=== PATIENT | female | born 1955 | race Caucasian/White ===

== ENCOUNTER 2022-02-01 14:42 | Outpatient (CLI) | payer OTHER, MEDICARE, SELFPAY ==
--- NOTE | 2022-02-01 15:20 | CRLHL7_ITS ---
For Patients: As a result of the Century Cures Act, medical imaging exams and procedure reports are released immediately into your electronic medical record. You may view this report before your referring provider. If you have questions, please contact your health care provider. BILATERAL SCREENING MAMMOGRAM WITH COMPUTER-AIDED DETECTION AND TOMOSYNTHESIS TECHNIQUE: CC and MLO views were obtained. These mammographic images have been obtained using full-field digital technique. These mammographic images were interpreted with the benefit of computer-aided detection. Breast Tomosynthesis was used in this interpretation. COMPARISON FILM: Previous 10+ years ago, re-establish baseline. FINDINGS: The breasts are heterogeneously dense, which may obscure small masses IMPRESSION: There is no radiographic evidence for malignancy. ASSESSMENT: BI-RADS Category 1: Negative RECOMMENDATION: Routine screening mammogram in 1 year. A lay language report of this examination will be provided to the patient. Tushar Garcia M.D. Diagnostic Radiologist [email or web address] CLAY/[email or web address] [email or web address]/Dictated by: Tushar Garcia MD @ 02/02/2022 9:32:00 AM (Electronically Signed)
== END 2022-02-01 14:43 | disposition home or self-care (01) ==
LOC: MAMMO 14:48
PROVIDERS: Visit Provider Physician Assistant Medical
DX: Z12.31 Encounter for screening mammogram for malignant neoplasm of breast (principal); R92.2 Inconclusive mammogram
CPT/HCPCS: 77063; 77067

== ENCOUNTER 2022-08-18 15:09 | Outpatient (CLI) | payer OTHER, SELFPAY ==
[2022-08-18 13:41] LABS: Albumin* 4.3 g/dL (3.3-5.0); Chloride* 104 mmol/L (96-114); Potassium* 4.4 mmol/L (3.6-5.1); Sodium* 141 mmol/L (135-149)
[2022-08-18 13:43] LABS: Bilirubin Total* 0.5 mg/dL (0.1-1.5); Carbon Dioxide* 32 mmol/L (20-32); Cholesterol* 275 mg/dL (90-199); Creatinine* 0.8 mg/dL (0.5-1.5); Estimated Glomerular Filt Rate 80 ml/min; Total Protein* 7.1 g/dL (6.0-8.3)
[2022-08-18 13:44] LABS: Alanine Aminotransferase* 43 U/L (4-35); Alkaline Phosphatase* 67 U/L (40-150); Aspartate Amino Transferase* 40 U/L (12-35); Blood Urea Nitrogen* 14 mg/dL (7-30); Calcium* 9.4 mg/dL (8.4-10.6); Glucose* 107 mg/dL (60-115); HDL Cholesterol* 68 mg/dL (>=50); LDL Cholesterol Calculated 165 mg/dL (<100); Triglycerides* 211 mg/dL (40-149)
[2022-08-18 13:47] LABS: Vitamin D 25 Hydroxy* 39 ng/mL (30-80)
== END 2022-08-18 15:10 | disposition home or self-care (01) ==
PROVIDERS: PCP Physician Assistant Medical; Visit Provider Physician Assistant Medical
DX: E78.5 Hyperlipidemia, unspecified (principal); I10 Essential (primary) hypertension; R79.89 Other specified abnormal findings of blood chemistry; E04.1 Nontoxic single thyroid nodule
CPT/HCPCS: 80053; 80061; 82306; 84443

== ENCOUNTER 2023-04-24 08:42 | Outpatient (CLI) | payer MEDICARE, SELFPAY ==
--- NOTE | 2023-04-24 09:00 | CRLHL7_ITS ---
For Patients: As a result of the Cures Act, medical imaging exams and procedure reports are released immediately into your electronic medical record. You may view this report before your referring provider. If you have questions, please contact your health care provider. Indication: Unspecified abdominal hernia without obstruction, lump right mid abdominal area Technique: Noncontrast CT abdomen and pelvis Please note that all CT scans at this facility use dose modulation, iterative reconstruction, and/or weight-based dosing when appropriate to reduce radiation dose to as low as reasonably achievable. Comparison: 06/21/2010, 11/16/2007 Findings: Lung bases are clear. No pleural effusion. No free intraperitoneal air. Stable intrahepatic hemangioma within the right hepatic lobe. Calcified stones in the gallbladder lumen have increased since the prior study. No gallbladder wall thickening. Stable left adrenal adenoma. Right adrenal gland normal. Mild fatty atrophy of the pancreas. Stable calcification within the left kidney. Right kidney normal. Stable subcentimeter retroperitoneal lymph nodes. No pelvic soft tissue mass. The bladder is unremarkable. Normal ureters. Sigmoid diverticulosis. No diverticulitis. Postop changes to the right side of the abdominal wall. No abdominal wall hernia. No fluid collection or abscess. Mild vascular calcifications. Degenerative disc disease lumbar spine. No fracture. Impression: Postoperative changes to the lateral aspect of the abdominal wall. No abdominal wall hernia, seroma or abscess. No mass. Stable subcentimeter retroperitoneal lymph nodes. Cholelithiasis. Stable benign left adrenal adenoma and intrahepatic hemangioma. Sigmoid diverticulosis without diverticulitis. Please note that all CT scans at this facility use dose modulation, iterative reconstruction, and/or weight-based dosing when appropriate to reduce radiation dose to as low as reasonably achievable. Dictated by Tushar Garcia MD @ 04/24/2023 9:51:17 AM (Electronically Signed)
== END 2023-04-24 08:43 | disposition home or self-care (01) ==
PROVIDERS: PCP Physician Assistant Medical; Visit Provider Physician Assistant Medical
DX: K46.9 Unspecified abdominal hernia without obstruction or gangrene (principal); K80.20 Calculus of gallbladder without cholecystitis without obstruction; K57.30 Diverticulosis of large intestine without perforation or abscess without bleeding
CPT/HCPCS: 74176

== ENCOUNTER 2024-03-06 07:50 | Outpatient (CLI) | payer MEDICARE, SELFPAY | END 2024-03-06 07:51 | disposition home or self-care (01) | PROVIDERS: PCP Physician Assistant Medical; Visit Provider Physician Assistant Medical | DX: E78.2 Mixed hyperlipidemia (principal); I10 Essential (primary) hypertension; E55.9 Vitamin D deficiency, unspecified; G62.9 Polyneuropathy, unspecified; R79.89 Other specified abnormal findings of blood chemistry | CPT/HCPCS: 80053; 80061; 82306; 82607; 84443 ==

== ENCOUNTER 2024-07-24 14:12 | Outpatient (CLI) | payer MEDICARE, SELFPAY ==
--- NOTE | 2024-07-24 15:20 | CRLHL7_ITS ---
For Patients: As a result of the Century Cures Act, medical imaging exams and procedure reports are released immediately into your electronic medical record. You may view this report before your referring provider. If you have questions, please contact your health care provider. BILATERAL SCREENING MAMMOGRAM WITH COMPUTER-AIDED DETECTION AND TOMOSYNTHESIS TECHNIQUE: CC and MLO views were obtained. These mammographic images have been obtained using full-field digital technique. These mammographic images were interpreted with the benefit of computer-aided detection. Breast Tomosynthesis was used in this interpretation. COMPARISON FILM: 02/01/22. FINDINGS: The breasts are heterogeneously dense, which may obscure small masses. IMPRESSION: There is no radiographic evidence for malignancy. ASSESSMENT: BI-RADS Category 2: Benign RECOMMENDATION: Routine screening mammogram in 1 year. A lay language report of this examination will be provided to the patient. Servando Horan M.D. Diagnostic/Nuclear Medicine Radiologist [email or web address]/[email or web address] SP/Dictated by: Servando Horan MD @ 07/25/2024 11:20:00 AM (Electronically Signed)
== END 2024-07-24 14:13 | disposition home or self-care (01) ==
LOC: RAD 14:13
PROVIDERS: PCP Physician Assistant Medical; Visit Provider Physician Assistant Medical
DX: Z12.31 Encounter for screening mammogram for malignant neoplasm of breast (principal); R92.333 Mammographic heterogeneous density, bilateral breasts; M85.80 Other specified disorders of bone density and structure, unspecified site; M85.88 Other specified disorders of bone density and structure, other site
CPT/HCPCS: 77063; 77067; 77080

== ENCOUNTER 2024-12-02 13:18 | Outpatient (CLI) | payer MEDICARE, SELFPAY | END 2024-12-02 13:19 | disposition home or self-care (01) | LOC: NFLDREF 12-04 02:38 | PROVIDERS: PCP Physician Assistant Medical; Referring Provider Physician Assistant Medical; Visit Provider Physician Assistant Medical | DX: I10 Essential (primary) hypertension (principal); R00.2 Palpitations | CPT/HCPCS: 84450; 84460 ==

== ENCOUNTER 2025-03-18 08:30 | Outpatient (CLI) | payer MEDICARE, SELFPAY | END 2025-03-18 08:31 | disposition home or self-care (01) | LOC: NFLDREF 03-23 04:21 | PROVIDERS: PCP Physician Assistant Medical; Referring Provider Physician Assistant Medical; Visit Provider Physician Assistant Medical | DX: Z00.00 Encounter for general adult medical examination without abnormal findings (principal); I10 Essential (primary) hypertension; E78.5 Hyperlipidemia, unspecified; M10.9 Gout, unspecified | CPT/HCPCS: 80053; 80061; 84443; 84550 ==

== ENCOUNTER 2025-04-02 13:26 | Outpatient (CLI) | payer MEDICARE, SELFPAY | END 2025-04-02 13:27 | disposition home or self-care (01) | LOC: RAD 13:27 | PROVIDERS: PCP Physician Assistant Medical; Visit Provider Physician Assistant Medical | DX: R00.2 Palpitations (principal) | CPT/HCPCS: 93306 ==

== ENCOUNTER 2025-04-04 14:13 | Outpatient (CLI) | payer MEDICARE, SELFPAY | END 2025-04-04 14:14 | disposition home or self-care (01) | LOC: NFLDREF 04-08 07:32 | PROVIDERS: PCP Physician Assistant Medical; Referring Provider Physician Assistant Medical; Visit Provider Nurse Practitioner Family | DX: N39.0 Urinary tract infection, site not specified (principal); R31.9 Hematuria, unspecified | CPT/HCPCS: 87086 ==

== ENCOUNTER 2025-04-14 14:20 | Outpatient (CLI) | payer MEDICARE, SELFPAY ==
--- NOTE | 2025-04-14 15:00 | CRLHL7_ITS ---
For Patients: As a result of the Century Cures Act, medical imaging exams and procedure reports are released immediately into your electronic medical record. You may view this report before your referring provider. If you have questions, please contact your health care provider. INDICATION: Hematuria. TECHNIQUE: CT abdomen and pelvis urogram without and with 100 cc Omnipaque 350 IV contrast. Contrast images were obtained in the delayed phases. COMPARISON: CT abdomen April 2023 FINDINGS: Kidneys: Bilateral kidneys are normal in size and show symmetric contrast enhancement. Nonobstructing left midpole calculus measures 8 millimeter. No ureteric calculi or hydronephrosis. No filling defect within the opacified portion of urine collecting system, ureters and urinary bladder. No solid enhancing renal mass. Urinary Bladder: The urinary bladder is minimally distended without wall thickening or perivesicular inflammation. Dependent opacified urinary bladder demonstrates no filling defect to suspect mass. Other: Linear atelectasis in the lingula. The liver, spleen, pancreas gallbladder demonstrate no acute findings. Right hepatic hemangioma, unchanged. Cholelithiasis. Small adrenal nodule with Hounsfield unit of less than 10 on noncontrast image measuring 14 mm, likely adenoma. No bowel obstruction or wall thickening. Colonic diverticulosis. Prostate is normal in size. No free intraperitoneal fluid or air. Small fat containing umbilical hernia. Minimal aortic atherosclerosis. No suspicious lymph nodes. Scattered mild degenerative changes of the spine. IMPRESSION: 1. Nonobstructing left midpole nephrolithiasis, unchanged. 2. Cholelithiasis. 3. Unchanged left adrenal adenoma. 4. Colonic diverticulosis without diverticulitis.. Please note that all CT scans at this facility use dose modulation, iterative reconstruction, and/or weight-based dosing when appropriate to reduce radiation dose to as low as reasonably achievable. Dictated by Kit Bryant MD @ 04/15/2025 1:08:02 PM (Electronically Signed)
== END 2025-04-14 14:21 | disposition home or self-care (01) ==
LOC: CT 14:20
PROVIDERS: PCP Physician Assistant Medical; Visit Provider Nurse Practitioner Family
DX: R31.9 Hematuria, unspecified (principal); N20.0 Calculus of kidney; K80.20 Calculus of gallbladder without cholecystitis without obstruction; E27.8 Other specified disorders of adrenal gland; K57.30 Diverticulosis of large intestine without perforation or abscess without bleeding
CPT/HCPCS: 74178; Q9967

== ENCOUNTER 2025-04-22 08:53 | Outpatient (CLI) | payer MEDICARE, SELFPAY ==
--- NOTE | 2025-04-22 10:45 | P.ANES_ITS ---
Anesthesia Charges Start Date/Time Anesthesia Start Date: 04/22/25 Anesthesia Start Time: 10:25 Stop Date/Time Anesthesia Stop Date: 04/22/25 Anesthesia Stop Time: 11:10 Summary Extremes of Age - Over 70 or under 1: MDA Coding CPT Codes CPT Codes: ANESTH ANORECTAL SURGERY - 64105 ([id number]) P3 - PATIENT W/SEVERE SYS DISEASE, QK - PARACHUTE MARKER 2-4 CNCRNT ANES PROC, QX - LOIN TRIMMER SVC W/ MD MED DIRECTION Additional Codes: Summary - Extremes of Age - Over 70 or under 1: MDA ([id number])
--- NOTE | 2025-04-22 10:45 | W.ANESCHARGE ---
Anesthesia Charges Start Date/Time Anesthesia Start Date: 04/22/25 Anesthesia Start Time: 10:25 Stop Date/Time Anesthesia Stop Date: 04/22/25 Anesthesia Stop Time: 11:10 Summary Extremes of Age - Over 70 or under 1: MDA Coding CPT Codes CPT Codes: ANESTH ANORECTAL SURGERY - 67645 ([id number]) P3 - PATIENT W/SEVERE SYS DISEASE, QK - HOT CAR CHARGER 2-4 CNCRNT ANES PROC, QX - RESEARCH GEOLOGIST SVC W/ MD MED DIRECTION Additional Codes: Summary - Extremes of Age - Over 70 or under 1: MDA ([id number])
--- NOTE | 2025-04-22 11:17 | P.ANES_ITS ---
Anesthesia Charges Start Date/Time Anesthesia Start Date: 04/22/25 Anesthesia Start Time: 10:25 Stop Date/Time Anesthesia Stop Date: 04/22/25 Anesthesia Stop Time: 11:10 Summary Extremes of Age - Over 70 or under 1: FAST FOOD ASSISTANT RESTAURANT MANAGER Coding CPT Codes CPT Codes: ANESTH ANORECTAL SURGERY - 10153 ([id number]) P3 - PATIENT W/SEVERE SYS DISEASE, QK - RADIAL DRILL OPERATOR FOR PLASTIC 2-4 CNCRNT ANES PROC Additional Codes: Summary - Extremes of Age - Over 70 or under 1: FAST FOOD ASSISTANT RESTAURANT MANAGER ([id number])
--- NOTE | 2025-04-22 11:17 | W.ANESCHARGE ---
Anesthesia Charges Start Date/Time Anesthesia Start Date: 04/22/25 Anesthesia Start Time: 10:25 Stop Date/Time Anesthesia Stop Date: 04/22/25 Anesthesia Stop Time: 11:10 Summary Extremes of Age - Over 70 or under 1: TWILL CUTTER Coding CPT Codes CPT Codes: ANESTH ANORECTAL SURGERY - 64644 ([id number]) P3 - PATIENT W/SEVERE SYS DISEASE, QK - HOME APPLIANCE WASHING MACHINE MECHANIC 2-4 CNCRNT ANES PROC Additional Codes: Summary - Extremes of Age - Over 70 or under 1: TWILL CUTTER ([id number])
== END 2025-04-22 08:54 | disposition home or self-care (01) ==
LOC: OP CLINIC 08:53
PROVIDERS: Visit Provider Surgery
DX: Z12.11 Encounter for screening for malignant neoplasm of colon (principal); D12.8 Benign neoplasm of rectum; K64.4 Residual hemorrhoidal skin tags; K64.8 Other hemorrhoids
CPT/HCPCS: 00811; 00902; 45385; 45398; 88305; 99100; J2704